=== PATIENT | female | born 1965 | race Caucasian/White ===

== ENCOUNTER 2019-09-30 16:05 | Outpatient (CLI) | payer OTHER | END 2019-09-30 16:10 | disposition home or self-care (01) | LOC: LAB 16:05 | PROVIDERS: ATTEND Physical Medicine & Rehabilitation | DX: Z20.828 Contact with and (suspected) exposure to other viral communicable diseases (principal); Z11.59 Encounter for screening for other viral diseases ==

== ENCOUNTER 2020-11-13 13:55 | Outpatient (CLI) | payer OTHER | END 2020-11-13 14:10 | disposition home or self-care (01) | LOC: PPH VACUNA 13:55 | PROVIDERS: ATTEND Emergency Medicine Pediatric Emergency Medicine | DX: Z23 Encounter for immunization (principal) ==

== ENCOUNTER 2021-10-09 21:58 | Emergency (ER) | payer OTHER ==
[~2021-10-09] VITALS: Ht 157.5 cm; Wt 93.9 kg
[2021-10-09] MEDS ORDERED: PANADOL (22:15)
[2021-10-09] MEDS ORDERED: LOSARTAN-HCTZ1 EAC1 (22:15)
[2021-10-09] MEDS ORDERED: CYCLOBENZAPRINE10 MG PO (23:28)
[2021-10-09] MEDS ORDERED: DICLOFENAC POTA50 MG PO (23:28)
== END 2021-10-09 23:52 | disposition home or self-care (01) ==
LOC: ER 21:58
DX: S19.89XA Other specified injuries of other specified part of neck, initial encounter (principal); V49.9XXA Car occupant (driver) (passenger) injured in unspecified traffic accident, initial encounter; Y93.9 Activity, unspecified; Y92.410 Unspecified street and highway as the place of occurrence of the external cause; M54.2 Cervicalgia; I10 Essential (primary) hypertension; M62.838 Other muscle spasm

== ENCOUNTER 2022-08-14 22:06 | Emergency (ER) | payer OTHER ==
[~2022-08-14] VITALS: Ht 157.5 cm; Wt 95.3 kg
[~2022-08-14 22:06] MED LIST: CYCLOBENZAPRINE10 MG PO; DICLOFENAC POTA50 MG PO; LOSARTAN-HCTZ1 EAC1; PANADOL
[2022-08-14] MEDS ORDERED: VERAPAMIL HCL40 MG PO (22:27)
[2022-08-15] MEDS ORDERED: PEPCID40 MG PO (04:06)
[2022-08-15] MEDS ORDERED: ONDANSETRON ODT4 MG PO (04:06)
== END 2022-08-15 04:11 ==
LOC: ER 22:06
DX: K29.70 Gastritis, unspecified, without bleeding (principal)

== ENCOUNTER 2023-01-09 18:57 | Emergency (ER) | payer OTHER ==
[~2023-01-09] VITALS: Ht 162.6 cm; Wt 95.3 kg
[~2023-01-09 18:57] MED LIST changes: +ONDANSETRON ODT4 MG PO; +PEPCID40 MG PO; +VERAPAMIL HCL40 MG PO
[2023-01-09] MEDS ORDERED: GENTAMICIN SULFA5 ML OP (20:14)
[2023-01-09] MEDS ORDERED: AMOX-CLAV 875-1 EAC1 PO (20:14)
[2023-01-09] MEDS ORDERED: TUSSIN DM LIQU118 ML PO (20:14)
== END 2023-01-09 20:53 | disposition home or self-care (01) ==
LOC: ER 18:58
DX: H10.9 Unspecified conjunctivitis (principal); R10.9 Unspecified abdominal pain

== ENCOUNTER 2024-05-16 13:39 | Outpatient (CLI) | payer OTHER ==
[~2024-05-16 13:39] MED LIST changes: +AMOX-CLAV 875-1 EAC1 PO; +GENTAMICIN SULFA5 ML OP; +TUSSIN DM LIQU118 ML PO
== END 2024-05-16 13:50 | disposition home or self-care (01) ==
LOC: RAD 13:39
DX: M99.03 Segmental and somatic dysfunction of lumbar region (principal); M99.04 Segmental and somatic dysfunction of sacral region; M99.05 Segmental and somatic dysfunction of pelvic region

== ENCOUNTER 2024-07-10 12:37 | Outpatient (CLI) | payer OTHER | END 2024-07-10 12:39 | disposition home or self-care (01) | LOC: RAD 12:37 | DX: M25.561 Pain in right knee (principal) ==